=== PATIENT | male | born 1990 | race Caucasian/White ===

== ENCOUNTER 2024-02-25 16:26 | Emergency (ER) | payer OTHER, SELFPAY ==
[2024-02-25 16:27] VITALS: BP 131/83; PULSE 74; RESP 16; TEMP 36.9; O2SAT 98; BMI 27.8
--- NOTE | 2024-02-25 16:53 | XR_ITS ---
PROCEDURE INFORMATION: Exam: XR Right Foot Exam date and time: 02/25/2024 4:54 PM Age: 33 years old Clinical indication: Pain; Foot; Right; Additional info: Crush injury medial pain TECHNIQUE: Imaging protocol: Radiologic exam of the right foot. Views: 3 or more views. COMPARISON: CR Ankle R 02/25/2024 4:53 PM FINDINGS: Bones/joints: Normal. Soft tissues: Diffuse soft tissue swelling involving the mid and forefoot. IMPRESSION: 1. Diffuse soft tissue swelling involving the mid and forefoot. 2. No evidence of acute osseous injury.
--- NOTE | 2024-02-25 16:53 | XR_ITS ---
PROCEDURE INFORMATION: Exam: XR Right Ankle Exam date and time: 02/25/2024 4:53 PM Age: 33 years old Clinical indication: Pain; Ankle; Right; Additional info: Crush injury medial pain TECHNIQUE: Imaging protocol: Radiologic exam of the right ankle. Views: 3 or more views. COMPARISON: No relevant prior studies available. FINDINGS: Bones/joints: Normal. Soft tissues: Diffuse soft tissue swelling. IMPRESSION: No evidence of acute osseous injury.
[2024-02-25] MEDS: IBUPROFEN 600 MG TABLET PO (17:02)
[2024-02-25] MEDS: ACETAMINOPHEN 500MG TAB 1000 MG PO (17:02)
--- NOTE | 2024-02-25 17:17 | HMH.EDGENADL ---
Discharge Plan Disposition Patient Disposition: Home, Self-Care Referrals Follow up/Referrals: Jeff Calderon DO [Primary Care Provider] - See instructions Activity Restrictions/Add. Instructions Additional Instructions/Restrictions: Call your family doctor to establish care for this visit to the emergency department and schedule follow-up within 48 hours to ensure improvement. If you have any worsening of your condition or any other concerning signs or symptoms, return to the emergency department or your primary care doctor for further evaluation. Clinical Impressions Clinical Impression: Crushing injury of ankle, right Stand Alone Forms Stand Alone Forms: Work/School Release Discharge ED Provider: Jesus Montes General Adult HPI General Chief complaint: Extremity Injury, Lower Stated complaint: WC 02/21, right foot pain Time Seen by Provider: 02/25/24 16:40 Mode of Arrival: Ambulatory Source of Information: Patient Limitations: No Limitations Description of Symptoms (Recalled from ER Triage Doc. by RN): c/o right ankle/foot pain after a bundle of fencing fell on his foot on Wednesday. PT reports the bundle was approx 2000pds. History of Present Illness HPI narrative: Please note that above description of symptoms, in this electronic medical record under categorization of recalled from ER triage doctor by RN are reflective of an initial nursing assessment, however, is not reflective of my full history and physical exam that was personally taken and clarified. Consequentially, this preceding description of symptoms, which may include the patient's categorized chief complaint in the EMR, do not reflect my personal clinical impression, and the ultimate description of history of present illness and patient stated complaints should be deferred to this section of the note. Unless stated otherwise or congruent with this section of the note, additional signs, symptoms, or incongruence should be interpreted as inaccurate with my clinical impression. Related Data Allergies Allergy/AdvReac Type Severity Reaction Status Date / Time Pertussis Vaccine Allergy Unknown Uncoded 08/10/17 14:48 Amoxicillin AdvReac Unknown Uncoded 08/10/17 14:48 Clavulanic Acid AdvReac Unknown Uncoded 08/10/17 14:48 [facility] Disclaimer: The information contained in this section may have been updated after the patient was seen, as this information can be updated by other users. Social History Smoking Status: Current every day smoker alcohol intake: never current occupational status: employed Travel in the last 8 weeks: None ROS Obtained: Yes All systems reviewed & no additional complaints except as documented Physical Exam General General appearance: alert and in no apparent distress Head Head exam: atraumatic and normocephalic Eye Eye exam: Present normal appearance, PERRL and EOMI ENT ENT exam: Present mucous membranes moist Neck Neck exam: Present normal inspection, full ROM and trachea midline Respiratory Respiratory exam: Absent respiratory distress, wheezes, stridor, accessory muscle use or prolonged expiratory phase Cardiovascular Cardiovascular exam: Present normal rhythm Abdominal Exam Abdominal exam: Present soft; Absent distention, tenderness, guarding, rebound or rigidity Extremities Exam Extremities exam: Present edema and other (Swollen, tender, pitting edema right ankle and foot. Resolving bruising yellow and purple. Tenderness primarily over medial malleolus. Neurologically intact and vascularly intact. Range of motion intact, but limited secondary to swelling.) Neurological Exam Neurological exam: Present alert, oriented X3, CN II-XII intact and normal gait; Absent motor sensory deficit Skin Skin exam: Present warm and dry; Absent diaphoresis or erythema Medical Decision Making Medical Records Medical records reviewed: Yes I reviewed the patient's medical records. Zacarias Inquiry Pt receiving controlled substance: No Zacarias was queried for this patient: No Vital Signs: 02/25/24 16:27 02/25/24 17:54 02/25/24 18:33 Temperature 98.5 F 97.9 F Temperature Source Oral Pulse Rate 61 56 L Pulse Rate [Left Radial] 74 Respiratory Rate 16 18 Blood Pressure 105/61 L 107/65 L Blood Pressure [Right Arm] 131/83 Blood Pressure Mean [Right Arm] 99 Blood Pressure Source [Right Arm] Automatic Cuff Blood Pressure Position [Right Arm] Sitting 02 Sat by Pulse Oximetry 98 96 Oxygen Delivery Method Room Air Room Air Orders (Tests/Meds): ED MEDICATIONS Discontinued Medications Generic Name Dose Route Start Last Admin Trade Name Freq PRN Reason Stop Dose Admin Acetaminophen 1,000 mg 02/25/24 16:53 02/25/24 17:02 Acetaminophen 500mg Tab PO 02/25/24 16:54 1,000 mg ONCE ONE Administration Ibuprofen 600 mg 02/25/24 16:53 02/25/24 17:02 Ibuprofen 600 Mg Tablet PO 02/25/24 16:54 600 mg ONCE ONE Administration ORDERS Category Date Time Status Ankle XR -Right minimum 3 Views [XR ankle RT min 3V] Exams 02/25/24 16:53 Completed Stat Foot XR right minimum 3 views [XR foot RT min 3V] Stat Exams 02/25/24 16:53 Completed Medical Decision Narrative: 33-year-old male presenting with right ankle and foot pain. Patient states that 3 days prior to this visit, he was working when a large object fell on his right ankle. He was in another state at the time on the job. Had images done, told it was not injured, sent home without crutches, boot, etc. Comes in because he is still having significant pain. Able to bear weight, but swelling and bruising seems to be getting worse. Pain is moderate, medial malleolus, does not radiate. No neurovascular deficits. History was obtained via conversation with patient. On arrival, patient hemodynamically stable, alert, oriented x4, appropriate, GCS 15, moving all extremities spontaneously, pupils equal and reactive to light. Full physical exam performed and significant for Swollen, tender, pitting edema right ankle and foot. Resolving bruising yellow and purple. Tenderness primarily over medial malleolus. Neurologically intact and vascularly intact. Range of motion intact, but limited secondary to swelling. Differential includes fracture, sprain, soft tissue injury, dislocation, among others. X-rays obtained, patient given Tylenol and Motrin. Independent interpretation of x-rays negative for any acute bony abnormality. Conversation had with patient regarding home-going, he wanted crutches, I feel this is appropriate. Because patient at baseline without signs or symptoms of clinical decompensation, deemed appropriate for discharge. Results were relayed to patient who voiced understanding and were agreeable to outpatient management and follow up. I discussed my clinical impression with patient and answered all questions. At this time, the evidence for any other entities in the differential is insufficient to warrant any further testing or ED observation. This was explained as well. Advisory was given that persistent or worsening symptoms require further evaluation. I confirmed the understanding of this discussion. Bookkeeping Clerk disclaimer Much of this encounter note is an electronic building construction superintendent spoken language to printed text. Electronic building construction superintendent of the spoken language may permit errors. Although I have reviewed the note, some errors may still exist. Critical Care Critical Care Time Critical Care Time: No
[2024-02-25 17:54] VITALS: BP 105/61; PULSE 61; O2SAT 96
--- NOTE | 2024-02-25 17:55 | PC.NURSE ---
Rounded on pt. No needs voiced at this time. Call light within reach.
[2024-02-25 18:33] VITALS: BP 107/65; PULSE 56; RESP 18; TEMP 36.6; O2SAT 98
== END 2024-02-25 18:35 | disposition home or self-care (01) ==
PROVIDERS: Emergency Provider Emergency Medicine; PCP Internal Medicine
DX: S97.01XA Crushing injury of right ankle, initial encounter (principal); M25.571 Pain in right ankle and joints of right foot; W20.8XXA Other cause of strike by thrown, projected or falling object, initial encounter
CPT/HCPCS: 73610; 73630; 99283

== ENCOUNTER 2024-03-03 11:00 | Outpatient (RCR) | payer OTHER, SELFPAY | END 2024-03-03 23:59 | disposition home or self-care (01) | LOC: PT 11:00 | PROVIDERS: Visit Provider Internal Medicine | DX: M79.673 Pain in unspecified foot (principal) ==

== ENCOUNTER 2024-04-26 08:00 | Outpatient (RCR) | payer OTHER, SELFPAY ==
--- NOTE | 2024-03-16 15:20 | HMH.PTOPEV ---
PT Outpatient Evaluation Rehab PT Outpatient Evaluation Start: 03/16/24 14:02 Freq: Status: Active Protocol: Document 03/16/24 14:02 ISABELLA (Rec: 03/16/24 15:16 [email or web address] [email or web address]) E-signed By Lydia Hale, PT Outpatient Therapy Subjective History Subjective History This is an initial PT evaluation for 33 y/o male, Nirav Aguero, who presents with referral for a crush injury to his foot. Pt reports he went to the ER after dropping a bundle of fencing (~2,000lbs ) on his foot. X-ray showed diffuse soft tissue swelling involving the mid and forefoot but no evidence of acute osseous injury. Pt reports he has an MRI scheduled for next WednesdayMar 24. Pt reports that since the initial injury his pain has improved on the left side but there is still some swelling and the right side of his foot is still numb . Pt has been ambulating without an AD but wears a CAM boot. Pt has difficulty walking >5 minutes and negotiating uneven terrain and stairs. Pt reports most of his pain is in the medial upper ankle/lower ragsdale. Pt is using ice for the swelling and pain. New diagnosis of cancer in past 12 No months? Chief Complaint Pain Symptom Type Ache,Numbness Symptoms Relieved By Ice,Brace/Support,OTC Meds, Prescription Meds Symptoms Aggravated By Standing,Physical Activity, Walking Prior Functional Limitations None Current Functional Limitations Lifting,Housework,Dressing, Driving,Standing,Squatting, Recreation Activity,Walking, Stairs Symptom Description Constant but Variable Level of pain today (0-10) 7 Pain scale - at its best (0-10) 4 Pain scale - at its worst (0-10) 8 Ankle/Foot Eval Gait Observation General Gait Pattern Observation Antalgic Gait Assistive Device Ambulation Assistive Device None Palpation Tenderness right Ankle/Foot Palpation Findings Tenderness ATF TTP negative PTF TTP negative CF TTP negative Deltoid ligament TTP negative ROM Ankle/Foot Dorsiflexion w/Knee Flexed 10 Active Range of Motion (degrees) Ankle/Foot Plantar Flexion Active Range 20 of Motion (degrees) Ankle/Foot Eversion Active Range of 15 Motion (degrees) Ankle/Foot Inversion Active Range of 25 Motion (degrees) Ankle/Foot ROM Limitations Pain MMT Ankle Dorsiflexion Strength Grade 4- Good- Ankle Plantarflexion Strength Grade 4- Good- Foot Eversion Strength Grade 4- Good- Foot Inversion Strength Grade 4- Good- Special Tests Ankle Eversion Test Negative Right Talar Tilt Test Positive Right Ankle Posterior Drawer Test Negative Right Neuro tests LE Dermatome Level S1 decrease sensation to monofilament Decreased sensitivity to light touch R side of foot Lower Extremity Functional Index Activities Today, do you or would you have any difficulty at all with: a.Any of your usual work, housework or Quite a bit of difficulty school activities b. Your usual hobbies, recreational or Quite a bit of difficulty sporting activities c. Getting into or out of the bath Moderate difficulty d. Walking between rooms A little bit of difficulty e. Putting on your shoes or socks Moderate difficulty f. Squatting No difficulty g. Lifting an object, like a bag of Moderate difficulty groceries from the floor h. Performing light activities around A little bit of difficulty your home i. Performing heavy activities around Quite a bit of difficulty your home j. Getting into or out of a car Moderate difficulty k. Walking 2 blocks Quite a bit of difficulty l. Walking a mile Extreme difficulty or unable to perform activity m. Going up or down 10 stairs (about 1 Extreme difficulty or unable flight of stairs) to perform activity n. Standing for 1 hour Quite a bit of difficulty o. Sitting for 1 hour A little bit of difficulty p. Running on even ground Quite a bit of difficulty q. Running on uneven ground Quite a bit of difficulty r. Making sharp turns while running fast Moderate difficulty s. Hopping Quite a bit of difficulty t. Rolling over in bed A little bit of difficulty LEFI Score Lower Extremity Functional Index Score 34 Miscellaneous Dx PT Eval Objective Objective Ankle figure 8 : 61cm Outpatient Therapy Assessment Impairments Problems/Impairmments Palpation Tenderness,Impaired Range of Motion,Impaired Strength,Impaired Transfers, Impaired Gait Pattern,Impaired Walking,Impaired Standing, Impaired Lifting,Impaired Stair Climbing,Impaired Incline Stepping,Impaired Stepping on Uneven Surface, Impaired Squatting,Impaired Recreational Activities, Impaired Running,Impaired Jumping,Impaired Work Activities,Subjective C/O Pain Prognosis Rehab Potential Good Comment Pt with impaired ankle strength and ankle ROM. Pt presents with closed/scabbed wounds on his medial upper ankle/lower ragsdale. Pt presents with some measurable swelling and erythema medially. Pt TTP distal medial achilles and demo's pain with foot inversion, anterior drawer, and syndesmosis squeeze. Pt would benefit from skilled OP PT to address deficits, decrease pain, and return to PLOF. Clinical Impression Consistent with Diagnosis Yes Short Term Goals Number of Weeks 3 Increase Strength Yes: Improve R ankle strength to 4/5 in all directions. Increase Ability to Walk Yes: Verbalize improved ability to walk longer distances without pain. Improve LEFI Score Yes: Improve LEFI by 4 points to demonstrate progress with LE function. Decrease Subjective C/O Pain Yes: 48 hour pain at worst 6/ 10 Patient to be Ind w/ HEP Yes: Verbalize IND with HEP. Crushing Foreman Goals Number of Weeks 8 Increase Range of Motion Yes: WNL R ankle to maximize functional ROM Increase Strength Yes: 5/5 R ankle MMT to return to PLOF and work. Improve Gait Pattern without Assistive Yes: Demonstrate gait with no Device deviations to return to PLOF. Improve Ability to Climb Stairs Yes: 12 6 steps with step through pattern and min-no c/o pain. Improve LEFI Score Yes: Improve to score of 50/80 to improve LE functioning. Decrease Subjective C/O Pain Yes: Pain at worst 2/10 to decrease pain severity. Patient to be Ind w/ Advanced HEP Yes Outpatient Therapy Plan of Care Treatment Plan May Include Therapeutic Exercise Including Home Yes Exercise Program Manual Therapy Techniques Yes Neuromuscular Re-education Yes Therapeutic Activities to Return to Yes Previous Functional/Work Level Gait Training Yes ADL/Self Care Education Yes Dry Needling Yes Thermal Modalities Yes Electrical Stimulation Yes Ultrasound/Phonophoresis Yes Iontophoresis Yes Orthotics/Bracing/Splinting Yes Vasopneumatic Compression Pump Yes Massage Yes Eval/Re-Eval Yes Frequency Times per week 2x Duration Number of Weeks 6-8 weeks Addendums This patient is a candidate for social No or vocational rehab? Patient/Guardian verbally acknowledges Yes understanding of treatment program and consents to further treatment? Patient/Guardian verbally acknowledges Yes understanding of diagnosis, prognosis and goals for treatment? Eval Complexity PT Charges 66759 - Low Complexity Shoulder/Elbow Eval Shoulder Objective Measurements Elbow Objective Measurements PHYSICIAN CERTIFICATION: I certify the specified therapy services for Nirav Nashy are required, authorized, and reviewed every 30 days.
--- NOTE | 2024-04-17 10:51 | HMH.RHREAS ---
Rehab Reassessment Rehab OP Re-assessment Start: 03/16/24 14:02 Freq: Status: Active Protocol: Document 04/17/24 09:52 ISABELLA (Rec: 04/17/24 10:50 [email or web address] [id number]) E-signed By Lydia Hale PT Lower Extremity Functional Index Activities Today, do you or would you have any difficulty at all with: a.Any of your usual work, housework or No difficulty school activities b. Your usual hobbies, recreational or A little bit of difficulty sporting activities c. Getting into or out of the bath No difficulty d. Walking between rooms No difficulty e. Putting on your shoes or socks No difficulty f. Squatting No difficulty g. Lifting an object, like a bag of No difficulty groceries from the floor h. Performing light activities around No difficulty your home i. Performing heavy activities around A little bit of difficulty your home j. Getting into or out of a car No difficulty k. Walking 2 blocks No difficulty l. Walking a mile A little bit of difficulty m. Going up or down 10 stairs (about 1 No difficulty flight of stairs) n. Standing for 1 hour A little bit of difficulty o. Sitting for 1 hour No difficulty p. Running on even ground No difficulty q. Running on uneven ground A little bit of difficulty r. Making sharp turns while running fast No difficulty s. Hopping No difficulty t. Rolling over in bed No difficulty LEFI Score Lower Extremity Functional Index Score 75 Rehab Re-assessment Subjective Subjective Pt reports he feels 90-95 % better since initial injury. 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 When discussing work duties, pt is required to performing climbing, loading, and unloading. Pt feels he is ready to return to work at this date but reports the climbing tasks may be difficult initially. Pt reports he is still on restrictions from his work of no climbing, driving, or walking long distances. Objective Objective Notes Ankle AROM: non-painful in all directions. DF = 25 PF = 50 Inversion = 26 Eversion = 20 Ankle strength: non-painful upon assessment DF = 4+/5 PF = 5/5 Inversion = 5/5 Eversion = 5/5 TTP: 0/4 TTP dorsal medial ankle. Some numbness at lateral aspect of foot. Assessment Progress Assessment Progressing as Expected Assessment Notes This is a reassessment for Nirav Aguero who presents to PT for c/o ankle pain after a crush injury. Since IE, pt has been seen for 4 treatment visits that have consisted of modalities prn, education, gait training, and therapeutic exercises focusing on ankle ROM, balance and restoring ankle strength. Pt with good attendance to scheduled PT visits and reports adherence to HEP. Since IE, pt with improvements in gait, pain complaints, ankle ROM, and strength. Pt has been out of his boot fulltime for ~ 2 weeks and reports he is doing well with daily activities and walking tasks with min-no pain. Pt still presents with minimally impaired DF strength when compared to his left side. Pt would continue to benefit from skilled outpatient physical therapy for 1-2 visits until his return to work. Patient goals met ST) Improve R ankle strength to 4/5 in all directions: MET 2) Verbalize improved ability to walk longer distances without pain: MET 3) Improve LEFI by 4 points to demonstrate progress with LE function: MET 4) 48 hour pain at worst 6/10: MET 5) Verbalize IND with HEP: MET LT) WNL R ankle to maximize functional ROM: MET 2) 5/5 R ankle MMT to return to PLOF and work: no met 3) Demonstrate gait with no deviations to return to PLOF: MET 4) 12 6 steps with step through pattern and min-no c/o pain: MET 5) Improve to score of 50/80 to improve LE functioning: MET 6) Pain at worst 2/10 to decrease pain severity: MET 7) IND with advanced HEP: not met Goals Not Met Advanced HEP, DF strength Plan Plan Continue POC Frequency of Therapy 2x weekly Duration of therapy 1 week (until return to work) Time and Billing Re-Eval Time 10 Re-Eval Billing Units 1 PHYSICIAN CERTIFICATION: I certify the specified therapy services for Nirav Aguero are required, authorized, and reviewed every 30 days.
== END 2024-04-26 08:05 | disposition home or self-care (01) ==
LOC: PT 08:00
PROVIDERS: Visit Provider Internal Medicine
DX: M25.571 Pain in right ankle and joints of right foot (principal); S97.01XA Crushing injury of right ankle, initial encounter
CPT/HCPCS: 97014; 97110; 97163; 97164; 97530; G0283